=== PATIENT | female | born 1965 | race Caucasian/White ===

== ENCOUNTER → 2017-01-26 | Outpatient (CLI) | payer OTHER ==
--- NOTE | ~2017-01-26 | MY29 ---
[facility] A Service of [facility] & [facility] RADIOLOGY TEXT RESULTS PATIENT: ERLIN GARDNER LOCATION: [facility] : 61 UNIT #: [id number] AGE: [address]: Mic Katz MD SEX: F ORDER DR: [id number] [facility] [address] [place], [place] [address] [id number] O MR#: [id number] Acc #: [id number] NAME: ERLIN GARDNER : 1965 SEX: F STUDY DATE/TIME: 01/26/2017 13:26 UNIT: [facility] ROOM: STUDY DESCRIPTION: MY SAMIA SCREENING W/ CAD BILAT Attending Physician: Mic Katz M.D. Ordering Physician: Mic Katz M.D. Primary Care Physician: Mic Katz M.D. MEDICAL IMAGING REPORT This report is preliminary unless electronic signature is present EXAM Digital screening mammogram 01/26/2017 HISTORY 51-year-old woman no risk elevation. Annual screen. COMPARISON Mammograms 12/25/2014, 01/20/2016. FINDINGS Digital imaging of each breast was completed utilizing screening protocol. Review includes FDA-approved CAD device. Breast parenchyma is extremely dense with a homogeneous pattern noted in each breast. Suggestion of architectural distortion noted in the upper hemisphere of the right breast. I expect this is in the upper outer quadrant posterior third and is not visualized on the craniocaudal projection. I see no associated microcalcifications. Dense left breast is stable. IMPRESSION Incomplete mammographic evaluation. Additional right breast imaging is recommended. This would include high-resolution spot compression views in exaggerated craniocaudal, true lateral and MLO projections. Targeted right breast ultrasound will be completed at the time if indicated. Given the overall parenchymal density bilaterally, digital breast tomosynthesis would be beneficial. This could be performed at [facility] if the diagnostic followup is scheduled there. Patients over the age of 40 are entered into a reminder system with target due date for the next mammogram. A result letter will also be sent to the patient. BIRADS: 0 Additional right breast imaging recommended [facility] A Service of [facility] & [facility] RADIOLOGY TEXT RESULTS PATIENT: ERLIN GARDNER LOCATION: [facility] : 61 UNIT #: [id number] AGE: [address]: Mic Katz MD SEX: F ORDER DR: STAT * RESULT Dictated by... Amador Molina M.D. THIS IS AN ELECTRONICALLY VERIFIED REPORT Amador Molina M.D. at 01/26/2017 2:38 PM AIDA/siobhan TD: 01/26/2017 13:54 JOB #: [id number] MEDICAL IMAGING REPORT Page 1 of 1 COPY
== END | disposition home or self-care (01) ==
LOC: CWCC 13:10
DX: Z12.31 Encounter for screening mammogram for malignant neoplasm of breast (principal); R92.8 Other abnormal and inconclusive findings on diagnostic imaging of breast
CPT/HCPCS: G0202

== ENCOUNTER → 2017-02-16 | Outpatient (CLI) | payer OTHER ==
--- NOTE | ~2017-02-16 | US24 ---
[facility] A Service of [facility] RADIOLOGY TEXT RESULTS PATIENT: ERLIN GARDNER LOCATION: [facility] : 61 UNIT #: [id number] AGE: [address]: Mic Katz MD SEX: F ORDER DR: [id number] [facility] [address] [place], [place] [address] [id number] O MR#: [id number] Acc #: [id number] NAME: ERLIN GARDNER : 1965 SEX: F STUDY DATE/TIME: 02/16/2017 9:08 UNIT: [facility] ROOM: STUDY DESCRIPTION: US Breast Unilateral Attending Physician: Mic Katz M.D. Referring Physician: Mic Katz M.D. Ordering Physician: Mic Katz M.D. Primary Care Physician: Mic Katz M.D. MEDICAL IMAGING REPORT This report is preliminary unless electronic signature is present EXAM Right breast ultrasound, 02/16/2017. INDICATIONS 51-year-old female recalled for additional imaging due to an asymmetry in the upper hemisphere. FINDINGS Please see the report from the additional views right breast same date for this dictation. BIRADS: 2 Benign finding. Dictated by... Kev Monteiro M.D. THIS IS AN ELECTRONICALLY VERIFIED REPORT Kev Monteiro M.D. at 02/16/2017 4:09 PM García TD: 02/16/2017 13:19 JOB #: [id number] MEDICAL IMAGING REPORT Page 1 of 1 COPY
--- NOTE | ~2017-02-16 | MY25 ---
[facility] A Service of [facility] & [facility] RADIOLOGY TEXT RESULTS PATIENT: ERLIN GARDNER LOCATION: [facility] : 61 UNIT #: [id number] AGE: [address]: Mic Katz MD SEX: F ORDER DR: [id number] [facility] [address] [place], [place] [address] [id number] O MR#: [id number] Acc #: [id number] NAME: ERLIN GARDNER : 1965 SEX: F STUDY DATE/TIME: 02/16/2017 8:53 UNIT: [facility] ROOM: STUDY DESCRIPTION: MY SAMIA DIAG W/ CAD UNI RT Attending Physician: Mic Katz M.D. Referring Physician: Mic Katz M.D. Ordering Physician: Mic Katz M.D. Primary Care Physician: Mic Katz M.D. MEDICAL IMAGING REPORT This report is preliminary unless electronic signature is present EXAM Additional views of the right breast and targeted right breast ultrasound 02/16/2017 INDICATION 51-year-old female with an asymmetry in the upper hemisphere right breast on recent screening mammography. Recalled for additional views and ultrasound. TECHNIQUE No additional views of the right breast to include spot compression exaggerated CC lateral with and without compression and true lateral views were obtained and reviewed with an FDA-approved CAD device. Targeted ultrasound of the upper hemisphere right breast was also performed. COMPARISON STUDIES 01/26/2017, 01/20/2016, 12/25/2014 FINDINGS MAMMOGRAPHIC IMAGING: There is heterogeneously dense breast tissue in the upper, outer quadrant right breast. This becomes less conspicuous with spot compression. When compared to the prior mammograms dating back to 2014, the appearance is similar to the 2014 study for technical factors, suggestive of dense breast tissue. Ultrasound was, thereafter, performed. ULTRASOUND FINDINGS RIGHT BREAST: The patient is initially scanned independently by the technologist and then rescanned in my presence. I also personally scanned the patient. Limited physical exam (with patient consent) was performed and demonstrates no focal palpable mass on my exam. Ultrasound of the upper hemisphere right breast demonstrates dense breast tissue in the 10 o'clock through 12 o'clock positions, but no distinct mass. Imaging of the remainder of the upper hemisphere right breast from 9 o'clock to 3 [facility]. [facility] A Service of [facility] & [facility] RADIOLOGY TEXT RESULTS PATIENT: ERLIN GARDNER LOCATION: [facility] : 61 UNIT #: [id number] AGE: [address]: Mic Katz MD SEX: F ORDER DR: o'clock is negative. Imaging findings are concordant with mammography. Absent new or worsening symptoms in either breast, the patient should return for a screening mammogram in 1 year. Findings and recommendations were discussed with the patient. She was encouraged that due to the density of her breast tissue, 3D mammography/tomosynthesis would be beneficial as a screening study for her in the future rather than standard digital mammograms. IMPRESSION 1. Additional mammographic views of the right breast and targeted ultrasound demonstrate dense breast tissue. Return to annual screening is recommended. See discussion above. Patient's over the age of 40 are entered into a reminder system with target due date for the next mammogram. BIRADS: 2 Benign findings Dictated by... Kev Monteiro M.D. THIS IS AN ELECTRONICALLY VERIFIED REPORT Kev Monteiro M.D. at 02/16/2017 4:09 PM Teddy TD: 02/16/2017 13:35 JOB #: [id number] MEDICAL IMAGING REPORT Page 1 of 1 COPY
== END | disposition home or self-care (01) ==
LOC: CMAM 08:23
DX: R92.8 Other abnormal and inconclusive findings on diagnostic imaging of breast (principal)
CPT/HCPCS: 76641; G0206